=== PATIENT | female | born 1935 | race Caucasian/White ===

== ENCOUNTER 2021-09-07 03:19 | Inpatient (IN) ==
[2021-09-07] MEDS ORDERED: NITROGLYCERIN SL 0.4 MG/TAB TAB SL STA (03:33)
[2021-09-07] MEDS ORDERED: ASPIRIN 81 MG CHEW PO STA (03:33)
[2021-09-07] MEDS ORDERED: NITROGLYCERIN SL 0.4 MG/TAB TAB ONE (03:36)
[2021-09-07] MEDS ORDERED: ASPIRIN CHEW 324 MG ONE (03:36)
--- NOTE | 2021-09-07 03:42 | Emergency Department Note ---
Impression & Plan ST elevation myocardial infarction (STEMI) of inferior wall, Hypertension, Acute hyperglycemia ED Provider Note Name: CHERELLE GLORIA Age: 85 Sex: F Arrives Via: Walk-In Informant: Patient ED Provider: Gregory Amaya MD Chief Complaint: Chest pain Impression: As per impressions above Medical Decision Making: This is an 85-year-old female with history of hypertension who arrives for evaluation of left-sided chest pain for the last 6 to 7 hours. She was brought urgently to room B3 where EKG was obtained showing inferior STEMI. Heart alert was called. Patient was given sublingual nitroglycerin, aspirin 324 mg p.o. and chest x-ray, labs, Covid were sent. Chest x-ray without evidence of widened mediastinum nor significant effusion/pneumothorax. Exam with good pulses all 4 extremities which are equal. Blood pressure trended down nicely with nitro before slowly trending back up. After consultation with hospitalist patient was given 5 mg IV Lopressor with improvement in heart rate. Chest pain has significantly improved by this time, though she notes some mild dullness remains. With these findings I believe this really represents inferior ACS. Her history and symptoms are not consistent with PE nor dissection. She has a benign abdominal exam. She has had no recent history of trauma nor injury. Patient was comfortable at time of transfer to [facility] with Dr. Chandra. Prior Medical Record and Triage/Nursing Notes reviewed by Me Additional history obtained from chart Differentials:Cardiac ischemia, aortic dissection, pulmonary embolism, pneumothorax, pneumonia, pericarditis, myocarditis, esophageal rupture, GERD, cholecystitis, pancreatitis, musculoskeletal, as well as other pathologies. Vital Signs: reviewed and remarkable for hypertension Interventions: Sublingual nitroglycerin, aspirin 324 mg p.o., Lopressor 5 mg IV Labs:Reviewed and remarkable for elevated blood sugar, elevated troponin Imagin view chest x-ray reviewed by me reveals similar findings to previous chest x-ray slightly rotated without evidence of widened mediastinum nor acute congestive heart failure EKG:Per My Interpretation: Indication Chest Pain: NSR 100 bpm, qtc 441, INFERIOR STEMI. No Ectopy. Compared to EKG 08/29/21 she now has evidence of STEMI. Cardiac/Tele Monitoring: Cardiac Monitoring: An Order was placed for continuous cardiac monitoring. The monitor shows a rate of 90 with a normal sinus rhythm. Consults:Dr Evan WAYNE Hospitalist. Dr Chandra Interventional Cardiology Plan: Disposition: Transferred to [facility] Condition: Good History of Present Illness:85-year-old female arrives for evaluation of chest pain. Patient notes she was pretty active all day cleaning her house and preparing for her family to visit for [place]. She notes this evening developing left-sided chest pain. Pain is dull and crushing in nature. Comes in waves but has been quite steady for the last few hours. Symptoms initially started around 9 PM. She notes some mild burping/belching. She has had no palpitations, syncope, difficulty breathing, nausea, vomiting, back pain nor other symptoms. Patient denies any radiation down arms or legs. She denies any tearing sensation nor abdominal/leg pain. She has had no history of cardiac d isease. She denies any previous cardiac work-up. She was recently started on amlodipine for hypertension about 1 week ago. She states nothing seems to make chest pain better or worse. She has taken no medications prior to arrival. Patient drove herself to the ER. Patient denies any recent falls, trauma, injuries. Patient denies any headache or recent head injuries. Patient denies any black nor bloody stools nor other abnormal bleeding/bruising. ROS: See above HPI for pertinent positives & negatives. A total of 10 systems reviewed and were otherwise negative. Past Medical History:Hypertension Past Surgical History:Cholecystectomy, lumpectomy, ankle surgery right Family History:Patient states father with CAD Social History:Patient lives alone, never smoker, no alcohol, no drugs Home Medications:Amlodipine Allergies:No known drug allergies Vitals:Blood Pressure: 208/104, Pulse 105, RR 18, T 36.6C, O2 100% on RA Physical Exam: GENERAL: Patient is anxious appearing and in mild distress. EYES: No scleral icterus, unremarkable pupils. ENT: Mucous membranes moist, no nasal congestion. NECK: No masses appreciated, nomeningismus, trachea is midline. RESPIRATORY: No dyspnea. Clear to auscultation and equal bilaterally. No wheeze, no rhonchi. CARDIOVASCULAR: Regular rate and rhythm.No murmurs, rubs, gallops appreciated. GASTROINTESTINAL: Abdomen soft, non-tender, no peritonitis.Bowel sounds positive.No masses appreciated. BACK: No midline tenderness, no CVA tenderness EXTREMITIES: Strong equal pulses bilateral ankles/feet. Good pulse bilateral wrists. Normal motion all extremities, no cyanosis, no edema. NEUROLOGIC: Alert and oriented, no acute motor or sensory deficits, no focal weakness, cranial nerves grossly intact. SKIN: No rash, no jaundice, no diaphoresis. PSYCH: Appropriate GCS: 15 ED Course: Times/Reassessments: Extensive bedside management throughout patient's stay Critical Care: I have personally spent 40 minutes of critical care time in the direct management of this patient. 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 This was a life/limb threatening event. This 40 minutes is in excess of all separately billable procedures. Gregory Amaya MD Past Med/Surg History Surgical History History of cholecystectomy History of surgery on arm Family History Denies family history of Ovarian cancer Prostate cancer Diabetes Myocardial infarction Breast cancer Colorectal cancer Hypertension Social History Smoking Status: Never smoker Second Hand Exposure: No; Hx Alcohol Use: No Hx Substance Use: No marital status: / Current Living Situation: Alone current occupational status: retired Feels Safe at Home: Yes caffeine: No Dental Care, Regularly: No Physical Activity Frequency: 1-2 Times per Week Physical Activity Frequency Comment: walking and outside work Seatbelt Use: always Sunscreen Use: No Allergies Allergies Allergy/AdvReac Type Severity Reaction Status Date / Time No Known Allergies Allergy Verified 09/02/21 10:32 Home Meds Previous Rx's Medication Instructions Recorded amlodipine 5 mg tablet (Norvasc) 5 mg PO DAILY #30 tab 08/29/21 Results & Data (ED) Vital Signs Vital Signs - 24 hr 09/07/21 03:28 09/07/21 03:30 09/07/21 03:42 Temperature 36.6 C Temperature Source Oral Pulse Rate 105 H Pulse Rate [Right Finger] 94 H Respiratory Rate 18 16 Respiratory Effort / Characteristics Non-Labored Spontaneous Non-Labored Spontaneous Respiratory Depth Normal Normal Blood Pressure 208/104 H Blood Pressure [Right Arm] 152/91 H Blood Pressure Mean 138 Blood Pressure Mean [Right Arm] 111 Blood Pressure Position Lying Blood Pressure Position [Right Arm] Sitting Pulse Oximetry 100 97 Oxygen Delivery Method Room Air Room Air Room Air Sepsis Recent Fever Within 48 Hours No Sepsis New/Unexplained Change in Mental Status N/A Sepsis Action Taken by Nursing No Action Required 09/07/21 03:48 09/07/21 04:10 Temperature Temperature Source Pulse Rate 100 H Pulse Rate [Right Finger] 93 H Respiratory Rate 16 16 Respiratory Effort / Characteristics Respiratory Depth Blood Pressure 172/76 H Blood Pressure [Right Arm] 175/89 H Blood Pressure Mean Blood Pressure Mean [Right Arm] 117 Blood Pressure Position Blood Pressure Position [Right Arm] Sitting Pulse Oximetry 97 96 Oxygen Delivery Method Room Air Room Air Sepsis Recent Fever Within 48 Hours Sepsis New/Unexplained Change in Mental Status Sepsis Action Taken by Nursing Laboratory Data Result diagrams: 09/07/21 03:34 09/07/21 03:34 Lab Results 09/07/21 09/07/21 09/07/21 Range/Units 03:34 03:34 03:34 WBC 9.14 (4.8-10.8) K/uL RBC 4.38 (4.2-5.4) M/uL Hgb 13.9 (12.0-16.0) g/dL POC Hgb (12.0-16.0) g/dl Hct 42.5 (37-47) % POC Hct (37-47) % MCV 97.0 (80-100) fL MCH 31.7 (25-34) pg MCHC 32.7 (32-36) g/dL RDW Std Deviation 46.5 H (36.4-46.3) fL RDW Coeff of Tavia 13.1 (11.5-14.5) % Plt Count 282 (130-400) K/uL MPV 9.9 (7.4-10.4) fL Immature Gran % (Auto) 0.1 % Neut % (Auto) 68.8 % Lymph % (Auto) 23.3 % Emanuel % (Auto) 6.9 % Eos % (Auto) 0.4 % Baso % (Auto) 0.5 % Neut # (Auto) 6.28 (1.4-6.5) K/uL Lymph # (Auto) 2.13 (1.2-3.4) K/uL Emanuel # (Auto) 0.63 H (0.11-0.59) K/uL Eos # (Auto) 0.04 (0-0.5) K/uL Baso # (Auto) 0.05 (0-0.2) K/uL Immature Gran # (Auto) 0.01 (0.00-0.02) K/uL PT 10.4 (9.0-12.0) Seconds INR 1.0 (0.9-1.1) APTT 27.4 (21.0-31.0) Seconds PTT Ratio 1.0 POC Sodium (135-144) mmol/L Sodium 135 L (136-145) mmol/L POC Potassium (3.3-5.0) mmol/L Potassium 4.0 (3.5-5.1) mmol/L POC Chloride (101-112) mmol/L Chloride 101 (98-107) mmol/L Carbon Dioxide 27 (21-32) mmol/L POC Total CO2 (24-31) mmol/L Anion Gap 7.0 (3-11) POC Anion Gap (16-25) mmol/L POC BUN (7-18) mg/dl BUN 22 H (7-18) mg/dl Creatinine 1.22 H (0.6-1.2) mg/dl POC Creatinine (0.6-1.3) mg/dl Est Cr Clr Drug Dosing 36.8 ml/min Est GFR ( Amer) 47.4 ml/min Est GFR (Non-Af Amer) 40.9 ml/min BUN/Creatinine Ratio 18.4 (10-20) Glucose 181 H (70-99) mg/dl POC Glucose (other) (70-99) mg/dl Calcium 9.9 (8.5-10.1) mg/dl POC Ioniz Calcium Majo (1.12-1.32) mmol/l Troponin I 2.140 H* (0-0.045) ng/ml SARS-CoV-2, RNA, NAAT (NEGATIVE) 09/07/21 09/07/21 Range/Units 03:48 04:07 WBC (4.8-10.8) K/uL RBC (4.2-5.4) M/uL Hgb (12.0-16.0) g/dL POC Hgb 14.3 (12.0-16.0) g/dl Hct (37-47) % POC Hct 42 (37-47) % MCV (80-100) fL MCH (25-34) pg MCHC (32-36) g/dL RDW Std Deviation (36.4-46.3) fL RDW Coeff of Tavia (11.5-14.5) % Plt Count (130-400) K/uL MPV (7.4-10.4) fL Immature Gran % (Auto) % Neut % (Auto) % Lymph % (Auto) % Emanuel % (Auto) % Eos % (Auto) % Baso % (Auto) % Neut # (Auto) (1.4-6.5) K/uL Lymph # (Auto) (1.2-3.4) K/uL Emanuel # (Auto) (0.11-0.59) K/uL Eos # (Auto) (0-0.5) K/uL Baso # (Auto) (0-0.2) K/uL Immature Gran # (Auto) (0.00-0.02) K/uL PT (9.0-12.0) Seconds INR (0.9-1.1) APTT (21.0-31.0) Seconds PTT Ratio POC Sodium 137 (135-144) mmol/L Sodium (136-145) mmol/L POC Potassium 4.0 (3.3-5.0) mmol/L Potassium (3.5-5.1) mmol/L POC Chloride 99 L (101-112) mmol/L Chloride (98-107) mmol/L Carbon Dioxide (21-32) mmol/L POC Total CO2 26 (24-31) mmol/L Anion Gap (3-11) POC Anion Gap 17.0 (16-25) mmol/L POC BUN 25 H (7-18) mg/dl BUN (7-18) mg/dl Creatinine (0.6-1.2) mg/dl POC Creatinine 1.0 (0.6-1.3) mg/dl Est Cr Clr Drug Dosing ml/min Est GFR ( Amer) ml/min Est GFR (Non-Af Amer) ml/min BUN/Creatinine Ratio (10-20) Glucose (70-99) mg/dl POC Glucose (other) 186 H (70-99) mg/dl Calcium (8.5-10.1) mg/dl POC Ioniz Calcium Majo 1.21 (1.12-1.32) mmol/l Troponin I (0-0.045) ng/ml SARS-CoV-2, RNA, NAAT NEGATIVE (NEGATIVE) Administered Medications Discontinued Medications Aspirin (Aspirin 81 Mg Chew) 324 mg PO NOW STA Stop: 09/07/21 03:34 Last Admin: 09/07/21 03:42 Dose: 324 mg Documented by: [id number] Aspirin (Aspirin Chew 324 Mg) Confirm Administered Dose 324 mg .ROUTE .STK-MED ONE Stop: 09/07/21 03:37 Last Admin: 09/07/21 03:42 Dose: Not Given Documented by: [id number] Metoprolol Tartrate (Metoprolol Tartrate 1 Mg/Ml Vial) 5 mg IV NOW STA Stop: 09/07/21 03:57 Last Admin: 09/07/21 03:58 Dose: 5 mg Documented by: [id number] Metoprolol Tartrate (Metoprolol Tartrate 1 Mg/Ml Vial) Confirm Administered Dose 5 mg IV .STK-MED ONE Stop: 09/07/21 03:57 Last Admin: 09/07/21 03:58 Dose: Not Given Documented by: [id number] Nitroglycerin (Nitroglycerin Sl 0.4 Mg/Tab Tab) 0.4 mg SL NOW STA Stop: 09/07/21 03:34 Last Admin: 09/07/21 03:42 Dose: 0.4 mg Documented by: [id number] Nitroglycerin (Nitroglycerin Sl 0.4 Mg/Tab Tab) Confirm Administered Dose 0.4 mg .ROUTE .STK-MED ONE Stop: 09/07/21 03:37 Last Admin: 09/07/21 03:42 Dose: Not Given Documented by: [id number] Discharge Plan Visit Data Chief Complaint: Chest Pain Stated Complaint: CHEST PAINS AND KEEP BURPING ED Provider: Gregory Amaya Discharge Problem: ST elevation myocardial infarction (STEMI) of inferior wall, Hypertension, Acute hyperglycemia Discharge Instructions Interventions: ED Discharge Assessment Last Done: 09/07/21 04:10 Forms Stand Alone Forms: [employer] Prescriptions Prescriptions: No Action amlodipine [Norvasc] 5 mg tablet 5 mg PO DAILY Qty: 30 RF: 0 Referrals Referrals: Tiffanie King PA-C [Primary Care Provider] - Discharge Problem: Hypertension Qualifiers: Hypertension type: primary hypertension Qualified Code(s): I10 - Essential (primary) hypertension
[2021-09-07 03:44] LABS: Basophils # (auto) 0.05 K/uL (0-0.2); Basophils % (auto) 0.5 %; Eosinophils # (auto) 0.04 K/uL (0-0.5); Eosinophils % (auto) 0.4 %; Hematocrit (blood only) 42.5 % (37-47); Hemoglobin 13.9 g/dL (12.0-16.0); Immature Granulocytes # (auto) 0.01 K/uL (0.00-0.02); Immature Granulocytes % (auto) 0.1 %; Lymphocytes # (auto) 2.13 K/uL (1.2-3.4); Lymphocytes % (auto) 23.3 %; Mean Corpuscular Hemoglobin 31.7 pg (25-34); Mean Corpuscular Hgb Conc 32.7 g/dL (32-36); Mean Platelet Volume 9.9 fL (7.4-10.4); Monocytes # (auto) 0.63 K/uL (0.11-0.59); Monocytes % (auto) 6.9 %; Neutrophils # (auto) 6.28 K/uL (1.4-6.5); Neutrophils % (auto) 68.8 %; Platelet Count 282 K/uL (130-400); RDW Coefficient of Variation 13.1 % (11.5-14.5); RDW Standard Deviation 46.5 fL (36.4-46.3); Red Blood Count 4.38 M/uL (4.2-5.4); White Blood Count 9.14 K/uL (4.8-10.8)
[2021-09-07] MEDS ORDERED: METOPROLOL TARTRATE 1 MG/ML VIAL IV ONE (03:56)
[2021-09-07] MEDS ORDERED: METOPROLOL TARTRATE 1 MG/ML VIAL IV STA (03:56)
[2021-09-07] MEDS ORDERED: niCARdipine HCL INJ 2.5 MG/ML 10 ML AMP ONE (03:57)
[2021-09-07] MEDS ORDERED: fentaNYL citrate 100 MCG/2 ML VIAL ONE (03:57)
[2021-09-07] MEDS ORDERED: HEPARIN (PORCINE) 1000 UNIT/ML 10 ML (CATH LAB USE ONLY) ONE (03:57)
[2021-09-07] MEDS ORDERED: MIDAZOLAM HCL 1 MG/ML 2ML VIAL ONE (03:57)
[2021-09-07] MEDS ORDERED: NITROGLYCERIN/D5W 100MCG/ML 20ML SYR ONE (03:58)
[2021-09-07 04:03] LABS: BUN Creatinine Ratio 18.4 (10-20); Calcium 9.9 mg/dl (8.5-10.1); Creatinine Clr Calc Pharmacy 36.8 ml/min; Est GFR (African American) 47.4 ml/min; Est GFR (Non-African American) 40.9 ml/min
[2021-09-07 04:04] LABS: iSTAT Hemoglobin 14.3 g/dl (12.0-16.0); iSTAT Ionized Calcium 1.21 mmol/l (1.12-1.32)
[2021-09-07 04:07] LABS: Partial Thromboplastin Time 27.4 Seconds (21.0-31.0); Prothrombin Time 10.4 Seconds (9.0-12.0)
--- NOTE | 2021-09-07 04:12 | Pre Anesthesia Assessment ---
Date of Service September 07, 2021 Pre Sedation Assessment Vital Signs Temp Pulse Pulse Resp BP BP Pulse Ox 09/07/21 03:48 93 H 16 175/89 H 97 09/07/21 03:42 94 H 16 152/91 H 97 09/07/21 03:28 97.9 F 105 H 18 208/104 H 100 Cardiovascular RRR, no murmur, no edema Respiratory normal respiratory effort, lungs clear to auscultation Pre-Sedation Airway Assessment Smoking Status: Never smoker Hx Sleep Apnea: No Hx Difficult Intubation: No Short, Thick Neck: No Thyromental Distance: > or= 3.5 Finger Breadths Oral Cavity: + WNL Mallampati Class: III ASA: ASA3 Procedure Planning Contraindications for Sedation: none Current Medications Reviewed: Yes Notes The planned sedation has been discussed with the patient. Informed Consent was obtained. I have identified the patient, determined the appropriateness of sedation and have assessed the patient immediately prior to the procedure. All medicine(s) and interventions are by my order.
--- NOTE | 2021-09-07 04:15 | Cardiology Consultation ---
Date of Consultation September 07, 2021 Assessment & Plan (1) ST elevation myocardial infarction (STEMI) of inferior wall: Presentation consistent with inferior STEMI and recommend proceeding with emergent cardiac catheterization and likely primary PCI. No apparent contraindications to procedure. Discussed risks, benefits, alternatives of procedure with patient and they are willing to proceed. Further recommendations pending findings of coronary angiography. History of Present Illness History of Present Illness 85-year-old woman here with acute chest pain and ECG concerning for acute [place]. Patient seen emergently in the ED after heart alert activated on arrival. No prior cardiac history. Cardiac risk factors include hypertension, recently started on only medicine amlodipine. No other medical issues. Chest pain began around 9 PM, approximately 6 hours prior to arrival after she had finished cleaning her whole home. Describes substernal pain with associated nausea. Denies similar symptoms in the past. Chest pain down to 3 out of 10 after nitro, aspirin. In ED hypertensive to 200s. EKG showed inferior ST elevations. Allergies Allergy/AdvReac Type Severity Reaction Status Date / Time No Known Allergies Allergy Verified 09/02/21 10:32 Home Medications Medication Instructions Recorded Confirmed Type amlodipine 5 mg tablet (Norvasc) 5 mg PO DAILY #30 tab 08/29/21 09/02/21 Rx Patient History Surgical History History of cholecystectomy History of surgery on arm Family History Denies family history of Ovarian cancer Prostate cancer Diabetes Myocardial infarction Breast cancer Colorectal cancer Hypertension Social History Smoking Status: Never smoker Second Hand Exposure: No; Hx Alcohol Use: No Hx Substance Use: No marital status: / Current Living Situation: Alone current occupational status: retired Feels Safe at Home: Yes caffeine: No Dental Care, Regularly: No Physical Activity Frequency: 1-2 Times per Week Physical Activity Frequency Comment: walking and outside work Seatbelt Use: always Sunscreen Use: No Review of Systems Review of Systems: Not completed in the setting of emergent situation Physical Exam Physical Exam: General: Uncomfortable HEENT: Sclerae anicteric, Mask in place Lungs: Clear to auscultation bilaterally Cardiac: Regular rate and rhythm, no murmurs. Vascular: 2+ radial, DP pulses. Abdomen: Soft, nontender Extremities: Well perfused, no peripheral edema Neuro: Nonfocal Psych: Alert orient x3, normal affect and mood Results & Data ([facility]) Vital Signs (Past 12 Hours) Vital Signs Temp Pulse Pulse Resp BP BP Pulse Ox 09/07/21 03:48 93 H 16 175/89 H 97 09/07/21 03:42 94 H 16 152/91 H 97 09/07/21 03:28 97.9 F 105 H 18 208/104 H 100 PG Care Time/CCT Total # of Minutes Spent Total Time Spent with Patient: Total time spent is greater than 50% in coordination of care (as documented) at patient's floor/unit and/or counseling patient: Coding Level of Care Code 05810 Initial Inpt Care Lvl [address] elevation myocardial infarction (STEMI) of inferior wall I21.19
[2021-09-07 04:29] LABS: Troponin I 2.14 ng/ml (0-0.045)
[2021-09-07] MEDS ORDERED: ATROPINE SULFATE 0.1 MG/ML 10ML SYR IV ONE (04:33)
[2021-09-07] MEDS ORDERED: EPTIFIBATIDE 2 MG/ML 10 ML VIAL (CATH LAB USE ONLY) IV ONE (04:35)
--- NOTE | 2021-09-07 05:12 | Post Anesthesia Assessment ---
Date of Service September 07, 2021 Post Sedation Assessment Vital Signs Temp Pulse Pulse Resp BP BP Pulse Ox 09/07/21 04:10 100 H 16 172/76 H 96 09/07/21 03:48 93 H 16 175/89 H 97 09/07/21 03:42 94 H 16 152/91 H 97 09/07/21 03:28 97.9 F 105 H 18 208/104 H 100 Recovery Score Activity: Moves 4 extremities Respiration: Deep Breath/Cough Circulation: +/-20% PreAnes Value Consciousness: Fully Awake Oxygen Saturation: O2 needed for >90% Discharge Sedation Level of Care: Fast Track Phase II Post Sedation Plan On clinical assessment, the patient appears to have tolerated the sedation without complications. Patient is recovering as anticipated. Patient will continue to be monitored by nursing and may be discharged when sedation discharge criteria are met per below protocol. Upon Completions of procedure up to 15 minutes continue every 5 minute vital signs and the P.A.R. score; then discharge to a Phase I or Fast Track to Phase II per the following guidelines: * Discharge Patient to appropriate Phase II area if PAR is 8 or greater or return to pre- procedure baseline. The post - procedure orders will be as directed. * If PAR score is less than 8 or not return to pre-procedure baseline then patient will follow Phase I monitoring till PAR is reached for Phase II. The Phase I may be done in procedure room or may call to secure a Phase I area. * If naloxone or flumazenil are used for reversal, hold in Phase I for continued monitoring from when last reversal dose was given for a minimum of 60 minutes or longer pending the nurse and/or physician discretion of patient condition before discharge to Phase II. Please call the Sedation Physician to re-evaluate and complete post-note for discharge to Phase II area. Do NOT discharge from procedure sedation or Phase 1 until post- sedation evaluation note is complete by procedure /sedation MD Sedation Discharge Instructions to be given to the patient at discharge to home.
[2021-09-07] MEDS ORDERED: CLOPIDOGREL BISULFATE 300 MG TAB ONE (05:15)
[2021-09-07] MEDS ORDERED: ONDANSETRON INJ 2 MG/ML 2 ML VIAL IV PRN (05:16)
[2021-09-07] MEDS ORDERED: ICU PROTOCOL FOR HYPERGLYCEMIA PRN (05:16)
[2021-09-07] MEDS ORDERED: ACETAMINOPHEN 325 MG TAB PO PRN (05:16)
[2021-09-07] MEDS ORDERED: SODIUM CHLORIDE 0.9% 1000ML 1,000 ML IV SCH (05:30)
--- NOTE | 2021-09-07 05:39 | History & Physical Report ---
Date of Service September 07, 2021 Assessment & Plan (1) ST elevation myocardial infarction (STEMI) of inferior wall: Plan: Inferior wall STEMI/hypertension- Heart alert protocol Emergent cardiac catheterization by dementia cardiology Dr. Chandra Medications post procedure per Dr. Chandra Cardiac catheterization showed distal RCA occlusion with upstream disease, treated with 3 stents Additional LAD disease to be intervened with in 1 to 2 days. (2) Hypertension: Plan: See above (3) Acute hyperglycemia: Plan: Glucose [address] Accu-Cheks before meals and at bedtime with NovoLog coverage per scale Check a hemoglobin A1c History of Present Illness Chief Complaint: The patient presents to the emergency department with complaint of acute onset of left-sided chest discomfort, of duration 6 to 7 hours prior to arrival Primary Care Provider: Tiffanie King PA-C The patient is an 85-year-old female with a past medical history including hypertension, recently started on amlodipine 5 mg daily in the outpatient setting, who was in her usual state of health until this evening where she developed acute onset of left-sided chest discomfort. Since the discomfort persisted 6 to 7 hours, she decided come to ED for assessment. In the emergency department, patient had an emergent EKG which showed ST elevation CA inferiorly, and heart alert was called. Patient did receive Lopressor 5 mg IV while in the ED, and aspirin 324 mg. She was taken emergently to cardiac catheter lab by Dr. Lenin Chandra, and will be admitted to the hospital post procedure for continued management Allergies Allergy/AdvReac Type Severity Reaction Status Date / Time No Known Allergies Allergy Verified 09/02/21 10:32 Home Medications Medication Instructions Recorded Confirmed Type amlodipine 5 mg tablet (Norvasc) 5 mg PO DAILY #30 tab 08/29/21 09/02/21 Rx Past Med/Surg History Surgical History History of cholecystectomy History of surgery on arm Family History Denies family history of Ovarian cancer Prostate cancer Diabetes Myocardial infarction Breast cancer Colorectal cancer Hypertension Social History Smoking Status: Never smoker Second Hand Exposure: No; Hx Alcohol Use: No Hx Substance Use: No marital status: / Current Living Situation: Alone current occupational status: retired Feels Safe at Home: Yes caffeine: No Dental Care, Regularly: No Physical Activity Frequency: 1-2 Times per Week Physical Activity Frequency Comment: walking and outside work Seatbelt Use: always Sunscreen Use: No Review of Systems Review of Systems: The patient denies palpitations, cough, lower extremity swelling, sore throat, fevers, chills, sweats, weight change, fatigue, nausea, vomiting, diarrhea , constipation, abdominal pain, pelvic pain, blood in urine or stool, dysuria, urinary frequency or urgency, lightheadedness, dizziness, headache, memory loss, loss of consciousness, rash, abnormal bruising or bleeding, imbalance, focal or generalized weakness, numbness or tingling in arms or legs, generalized arthralgias or myalgias, back or neck pain, or night sweats. The review of systems is otherwise negative other than for that already noted above, and at least 10 systems have been reviewed. Physical Exam Physical Exam: The patient is awake, alert and oriented 3, well developed and well nourished, normocephalic and atraumatic, lying in bed and in mildacute distress. HEENT--PERRL, EOMI, mucous membranes and oropharynx normal. Neck--supple. No JVD. No bruits. Thyroid normal, trachea midline, no adenopathy. Heart--normal S1 and S2. No murmurs, rubs or gallops. Lungs--clear bilaterally, no respiratory distress, no accessory muscle use. Abdomen--normal bowel sounds and soft. Nontender. Nondistended. Extremities--no cyanosis or clubbing. No edema. Dermatologic--normal skin turgor, normal color, no abnormal lymph nodes, no rash. Neurologic--cranial nerves II through XII grossly intact. Rheumatologic--limited exam Psychiatric--normal affect. Results & Data Results & Data ([facility]) Vital Signs (Past 12 Hours) Vital Signs Temp Pulse Pulse Resp BP BP Pulse Ox 09/07/21 04:10 100 H 16 172/76 H 96 09/07/21 03:48 93 H 16 175/89 H 97 09/07/21 03:42 94 H 16 152/91 H 97 09/07/21 03:28 36.6 C 105 H 18 208/104 H 100 Laboratory Results Laboratory Results WBC 9.14 K/uL (4.8-10.8) 09/07/21 03:34 RBC 4.38 M/uL (4.2-5.4) 09/07/21 03:34 Hgb 13.9 g/dL (12.0-16.0) 09/07/21 03:34 POC Hgb 14.3 g/dl (12.0-16.0) 09/07/21 03:48 Hct 42.5 % (37-47) 09/07/21 03:34 POC Hct 42 % (37-47) 09/07/21 03:48 MCV 97.0 fL (80-100) 09/07/21 03:34 MCH 31.7 pg (25-34) 09/07/21 03:34 MCHC 32.7 g/dL (32-36) 09/07/21 03:34 RDW Std Deviation 46.5 fL (36.4-46.3) H 09/07/21 03:34 RDW Coeff of Tavia 13.1 % (11.5-14.5) 09/07/21 03:34 Plt Count 282 K/uL (130-400) 09/07/21 03:34 MPV 9.9 fL (7.4-10.4) 09/07/21 03:34 Immature Gran % (Auto) 0.1 % 09/07/21 03:34 Neut % (Auto) 68.8 % 09/07/21 03:34 Lymph % (Auto) 23.3 % 09/07/21 03:34 Arthur % (Auto) 6.9 % 09/07/21 03:34 Eos % (Auto) 0.4 % 09/07/21 03:34 Baso % (Auto) 0.5 % 09/07/21 03:34 Neut # (Auto) 6.28 K/uL (1.4-6.5) 09/07/21 03:34 Lymph # (Auto) 2.13 K/uL (1.2-3.4) 09/07/21 03:34 Arthur # (Auto) 0.63 K/uL (0.11-0.59) H 09/07/21 03:34 Eos # (Auto) 0.04 K/uL (0-0.5) 09/07/21 03:34 Baso # (Auto) 0.05 K/uL (0-0.2) 09/07/21 03:34 Immature Gran # (Auto) 0.01 K/uL (0.00-0.02) 09/07/21 03:34 PT 10.4 Seconds (9.0-12.0) 09/07/21 03:34 INR 1.0 (0.9-1.1) 09/07/21 03:34 APTT 27.4 Seconds (21.0-31.0) 09/07/21 03:34 PTT Ratio 1.0 09/07/21 03:34 Activ Coag Time Kaolin 255 SECONDS (94-140) H 09/07/21 04:42 POC Sodium 137 mmol/L (135-144) 09/07/21 03:48 Sodium 135 mmol/L (136-145) L 09/07/21 03:34 POC Potassium 4.0 mmol/L (3.3-5.0) 09/07/21 03:48 Potassium 4.0 mmol/L (3.5-5.1) 09/07/21 03:34 POC Chloride 99 mmol/L (101-112) L 09/07/21 03:48 Chloride 101 mmol/L (98-107) 09/07/21 03:34 Carbon Dioxide 27 mmol/L (21-32) 09/07/21 03:34 POC Total CO2 26 mmol/L (24-31) 09/07/21 03:48 Anion Gap 7.0 (3-11) 09/07/21 03:34 POC Anion Gap 17.0 mmol/L (16-25) 09/07/21 03:48 POC BUN 25 mg/dl (7-18) H 09/07/21 03:48 BUN 22 mg/dl (7-18) H 09/07/21 03:34 Creatinine 1.22 mg/dl (0.6-1.2) H 09/07/21 03:34 POC Creatinine 1.0 mg/dl (0.6-1.3) 09/07/21 03:48 Est Cr Clr Drug Dosing 36.8 ml/min 09/07/21 03:34 Est GFR ( Amer) 47.4 ml/min 09/07/21 03:34 Est GFR (Non-Af Amer) 40.9 ml/min 09/07/21 03:34 BUN/Creatinine Ratio 18.4 (10-20) 09/07/21 03:34 Glucose 181 mg/dl (70-99) H 09/07/21 03:34 POC Glucose (other) 186 mg/dl (70-99) H 09/07/21 03:48 Calcium 9.9 mg/dl (8.5-10.1) 09/07/21 03:34 POC Ioniz Calcium Majo 1.21 mmol/l (1.12-1.32) 09/07/21 03:48 Troponin I 2.140 ng/ml (0-0.045) H* 09/07/21 03:34 SARS-CoV-2, RNA, NAAT NEGATIVE (NEGATIVE) 09/07/21 04:07 Blood Type A Positive 09/07/21 03:34 Antibody Screen NEGATIVE 09/07/21 03:34 Code Status & VTE Plan Code Status Full code VTE Prophylaxis Plan VTE Prophylaxis will be ordered: Yes PG Care Time/CCT Total # of Minutes Spent Total Time Spent with Patient: Total time spent is greater than 50% in coordination of care (as documented) at patient's floor/unit and/or counseling patient: Coding Level of Care Code 98114 Initial Inpt Care Lvl [address] elevation myocardial infarction (STEMI) of inferior wall I21.19 Hypertension I10 Hypertension type: primary hypertension Acute hyperglycemia R73.9 (1) Hypertension Hypertension type: primary hypertension Qualified Code(s): I10 - Essential (primary) hypertension
--- NOTE | 2021-09-07 05:43 | Cardiac Catheterization ---
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 Cardiac Status Clinical evaluation leading to the procedure CAD Presenation: STEMI Anginal Classification: CCS IV Heart Failure: No Cardiogenic Shock within 24 Hours: No Cardiac Arrest within 24 Hours: No Imaging Studies Past 6 Months: No Stress Studies Past 6 Months: No Diagnostic Physicians Name: Lenin Chandra MD Status: Emergency Closure Device Percutaneous Entry Location: Radial Closure Device: Radial Band Recommendations: PCI without planned CABG PCI Indication: Immediate PCI for STEMI First Noted: First EKG Lesion Segment Name: Distal RCA Culprit Artery: Yes Stenosis Prior to Rx (%): 100 Chronic Total Occlusion: No IVUS: No FFR: No Pre-Procedure YOSELYN Flow: 0 Previously Treated Lesion: No Lesion Complexity: Non-High/Non-C Lesion Length (mm): 18 Thrombus Present: Yes Bifurcation Lesion: No Guidewire Across Lesion: Stenosis Post-Procedure (%): 0 Post-Procedure YOSELYN Flow: 3 Devices(s) Deployed: Yes Yes Intraprocedure Events Significant Disection: No Perforation: No Cardiac Cath Procedure Full Procedure Date September 07, 2021 Pre-Procedure Diagnosis Pre-Procedure Diagnosis: STEMI AUC Score AUC Score: 9 Post-Procedure Diagnosis Post-Procedure Diagnosis: Severe CAD, Successful PCI and Normal Intracardiac Pressures Procedure(s) Performed Procedure(s) Performed: Coronary Angiography, Left Heart Cath and Drug Eluting Stent Shake Feeder Lenin Chandra MD Bisque Brusher(s) Deibler Estimated Blood Loss Estimated Blood Loss: 15 Medication(s) Medication(s): Clopidogrel, Fentanyl, Heparin, Integrilin, Lidocaine 1%, Nicardipine, Nitroglycerin and Versed Summary of Findings Indication: STEMI/Heart Alert Access: 6 Fr right radial artery Catheters: [place], JR4 guide, pigtail Findings: LM -normal caliber, no significant disease LAD -medium caliber, calcified, diffuse proximal to mid disease up to 90%, latemid vessel after 2nd diagonal diffuse moderate disease up to 60%, distal vessel without significant disease extending to apex. Small D2 without disease. Circumflex -medium caliber, 20 to 30% proximal, 40% mid segment disease extending into large OM 2. Remainder of AV groove circumflex small without significant disease and provides [id number] collaterals to right PLB's RCA -dominant, medium caliber 60% focal proximal to mid disease, mid segment heavily calcified with diffuse 70% disease, acute on chronic 100% distal occlusion just before takeoff of PDA. PDA after flow reestablished medium caliber without significant disease. LVEDP -14 -- PCI -- Antithrombotic therapy: Heparin, clopidogrel, IC Integrilin Procedure: RCA cannulated with JR4 guide Airplane Coverer 50 passed across lesion into distal right PLB Telescope support catheter placed in the proximal RCA Distal RCA lesion predilated with 2.0 and 2.5 compliant balloons. Mid RCA also dilated with 2.0 and 2.5 balloons. IC Integrilin administered for thrombus burden, sluggish distal flow Dilated distal RCA lesion stented with 2.75 x 22 mm Naseem drug-eluting stent Dilated mid RCA lesion stented with 3.0 x 22 mm Naseem drug-eluting stent Stents post-dilated with 3.25 noncompliant balloon 3rd drug-eluting stent placed to proximal RCA (3.0 x 12 mm [place]) Stent postdilated with 3.25 NC IC vasodilators administered for spasm Post procedure YOSELYN 3 flow, stents well expanded with minimal residual stenosis and no apparent cardiac complications. Arterial Closure: TR band Summary: 1. Inferior STEMI 2. Acute on chronic 100% distal RCA occlusion with partial [id number] collaterals. 60% proximal RCA, 70% diffuse mid RCA. 3. Severe non-culprit vessel coronary artery disease -Diffuse proximal to mid 90% LAD. Latemid LAD diffuse moderate disease. 40% mid circumflex into OM 2 4. Normal intracardiac filling pressure 5. Successful PCI of RCA with 3 nonoverlapping drug-eluting stents (proximal 3.0 x 12, mid 3.0 x 22, distal 2.75 x 22 Florence; postdilated with 3.25 NC). 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 Trend troponins until peak, Check Echo Uptitrate beta-sharon/ARIADNA as BP allows High-dose statin Consult cardiac Rehab Plan for staged PCI of proximal to mid LAD during this hospitalization pending stable renal function. Hemodynamics Rest Ao:: 157/67/112 Final Ao: 116/51/74 LV: 109/14 Recommendations Recommendations: PCI without planned CABG Specimens Specimens: None Radiation Exposure (mGy) 3289 Contrast (mls) 120 Fluids (cc crystalloids) Fluids (cc crystalloids): 480 Drains Drains: None Anesthesia Moderate 1378-3850 Procedural Complication(s) None Disposition ICU I attest to the content of the Intraoperative Record and any orders documented therein. Any exceptions are noted below. [facility] Card Cath Procedure Codes Cardiac Catheterization Procedure 1: Cardiovascular Cath Procedures: 99660 Coronaries and LHC (+/-LV) Moderate Sedation Procedure 1: Sedation/Anesthesia: 94329 Mod Sedation by the same physician;Init15 Min Child Age 5 & Up Procedure 2: Sedation/Anesthesia: 66572 Mod Sedation by the same physician; Ea [id number] Minutes Stenting Procedure 1: Cardiovascular Stent Procedures: 04043 Perc transluminal revascularization of acute sub/total occl, aMI PG Care Time/CCT Total # of Minutes Spent Total Time Spent with Patient: Total time spent is greater than 50% in coordination of care (as documented) at patient's floor/unit and/or counseling patient:
[2021-09-07] MEDS ORDERED: CARBOHYDRATES FOR HYPOGLYCEMIA PO PRN (05:57)
[2021-09-07] MEDS ORDERED: GLUCOSE 40% GEL 15 GM TUBE PO PRN (05:57)
[2021-09-07] MEDS ORDERED: GLUCOSE 10 TABS/TUBE PO PRN (05:57)
[2021-09-07] MEDS ORDERED: GLUCAGON FOR INJ 1 MG VIAL SQ PRN (05:57)
[2021-09-07] MEDS ORDERED: DEXTROSE 50% 50 ML SYRINGE IV PRN (05:57)
--- NOTE | 2021-09-07 07:07 | XRay Report ---
XR chest 1V portable CLINICAL HISTORY: Chest Pain. COMPARISON STUDY: 08/29/2021 TECHNIQUE: 1 view of the chest FINDINGS: Single frontal view of the chest demonstrates the heart size to again be mildly enlarged. There is ag ain evidence for mild central vascular congestion with no evidence for peripheral interstitial edema. There is no evidence for pleural effusion. No acute alveolar opacities are identified. There is no a cute osseous pathology. IMPRESSION: Cardiomegaly with mild central vascular congestion. No diffuse interstitial edema is seen . ACT 112: Negative or not required by law. Electronically signed by: Nickolas Nicolas M.D. 09/07/2021 7:05 AM
--- NOTE | 2021-09-07 07:49 | Critical Care Consultation ---
Date of Consultation September 07, 2021 Assessment & Plan (1) ST elevation myocardial infarction (STEMI) of inferior wall: (2) Hypertension: (3) Obesity (BMI 30.0-34.9): Initial EKG in the ER showed ST elevation in 2 3 aVF EKG post cardiac cath showed resolving ST elevations. --STEMI S/p cardiac cath, 3 stents placed in the RCA Continue with dual antiplatelet therapy Continue with beta-sharon and ARIADNA inhibitor Continue with statin --Hypertension Continue with beta-sharon and lisinopril We will increase the dose if need be --Obesity Try to lose weight with diet and exercise Plan: Patient is supposed to have another cardiac catheterization tomorrow Continue with IV fluids for total of 750 mm Incentive spirometry Please note the above document was generated using voice recognition software. It may contain grammatical, syntax or spelling errors.Any formal questions or concerns about the content, text or information contained within the body of t his dictation should be directly addressed to the provider for clarification. History of Present Illness Attending Physician: Chaka Lindsey MD History of Present Illness 85-year-old female past medical history of hypertension presented to the hospital with complaints of chest pain Patient was found to have ST elevation in 2 3 and aVF. STEMI was called and patient was taken to the cardiac Label Coder Patient is seen in the ICU post cardiac catheterization and stenting At the time of examination patient denied any chest pain. No shortness of breath. No nausea vomiting She did have breakfast Denied any headache. No blurry vision. Has been eating well. She is overall feeling better compared to when she presented to the ER Social history: Lifetime non-smoker. No illicit drug use. Works in [employer] Allergies Allergy/AdvReac Type Severity Reaction Status Date / Time No Known Allergies Allergy Verified 09/02/21 10:32 Home Medications Medication Instructions Recorded Confirmed Type amlodipine 5 mg tablet (Norvasc) 5 mg PO DAILY #30 tab 08/29/21 09/02/21 Rx Patient History Surgical History History of cholecystectomy History of surgery on arm Family History Denies family history of Ovarian cancer Prostate cancer Diabetes Myocardial infarction Breast cancer Colorectal cancer Hypertension Social History Smoking Status: Never smoker Second Hand Exposure: No; Do You Dip or Chew Tobacco: No; Hx Alcohol Use: No Hx Substance Use: No Preferred Language: French Communication Ability: Effective 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 Beliefs That Will Affect Care: None marital status: / Current Living Situation: Alone current occupational status: retired Feels Safe at Home: Yes Safety Concerns: Feels Safe At This Time caffeine: No Dental Care, Regularly: No Physical Activity Frequency: 1-2 Times per Week Physical Activity Frequency Comment: walking and outside work Seatbelt Use: always Sunscreen Use: No Assistive Devices: Denture - Upper and Glasses Review of Systems Review of Systems: All systems reviewed & are unremarkable except as noted in HPI & below Physical Exam Physical Exam: Constitutional: No acute distress HEENT: EOMI, PERRLA Respiratory system: Good air entry bilaterally, no wheeze, no rhonchi, mild crackles bilateral lower lobes CVS: S1-S2 positive, no murmurs or gallops Abdomen: Soft, nontender, nondistended, positive bowel sounds x4 Extremities: +2 pulses bilaterally radialis/ dorsalis pedis, no cyanosis, no edema Neuro: Awake alert oriented x3 Psych: Normal mood and affect G/U: No Damon Skin: no rashes, warm and dry Lymphatic: no cervical or axillary lymphadenopathy Results & Data Results & Data ([facility]) Vital Signs (Past 12 Hours) Vital Signs Temp Pulse Pulse Pulse Resp BP BP 09/07/21 05:52 36.6 C 75 22 139/74 09/07/21 05:38 82 09/07/21 04:10 100 H 16 172/76 H 09/07/21 03:48 93 H 16 09/07/21 03:42 94 H 16 09/07/21 03:28 36.6 C 105 H 18 208/104 H BP Pulse Ox 09/07/21 05:52 95 09/07/21 05:38 09/07/21 04:10 96 09/07/21 03:48 175/89 H 97 09/07/21 03:42 152/91 H 97 09/07/21 03:28 100 09/07/21 03:34 09/07/21 03:34 [place] [address] Inpt Consult Level [address] Patient Type New Diagnoses ST elevation myocardial infarction (STEMI) of inferior wall I21.19 Hypertension I10 Hypertension type: primary hypertension Obesity (BMI 30.0-34.9) E66.9 (1) Hypertension Hypertension type: primary hypertension Qualified Code(s): I10 - Essential (primary) hypertension
[2021-09-07] MEDS: METOPROLOL TARTRATE 25 MG TAB PO SCH ×2 (08:19→20:54)
[2021-09-07] MEDS: ATORVASTATIN 40 MG TAB PO SCH (08:19)
[2021-09-07] MEDS: lisinopril 5 MG TAB PO SCH (08:19)
[2021-09-07] MEDS: ASPIRIN 81 MG ECTAB PO SCH (08:20)
[2021-09-07] MEDS: INSULIN ASPART PER UNIT SC SCH ×4 (08:52→20:40)
[2021-09-07 09:12] LABS: Hematocrit (blood only) 38.1 % (37-47); Hemoglobin 12.5 g/dL (12.0-16.0); Mean Corpuscular Hemoglobin 31.9 pg (25-34); Mean Corpuscular Hgb Conc 32.8 g/dL (32-36); Mean Corpuscular Volume 97.2 fL (80-100); Mean Platelet Volume 10.3 fL (7.4-10.4); Platelet Count 220 K/uL (130-400); RDW Coefficient of Variation 13.3 % (11.5-14.5); RDW Standard Deviation 47.3 fL (36.4-46.3); Red Blood Count 3.92 M/uL (4.2-5.4)
[2021-09-07 09:31] LABS: BUN Creatinine Ratio 17.4 (10-20); Creatinine Clr Calc Pharmacy 41.6 ml/min; Est GFR (African American) 52.6 ml/min; Est GFR (Non-African American) 45.4 ml/min; Potassium 3.8 mmol/L (3.5-5.1)
[2021-09-07 10:19] LABS: Troponin I 69.9 ng/ml (0-0.045)
--- NOTE | 2021-09-07 14:15 | Hospitalist Progress Note ---
Date of Service September 07, 2021 Assessment & Plan (1) ST elevation myocardial infarction (STEMI) of inferior wall: Plan: Inferior wall STEMI. Troponin up to 70 on 09/07. - Heart alert protocol - Cardiac catheterization showed distal RCA occlusion with upstream disease, treated with 3 stents. - Additional LAD disease to be intervened with in 1 to 2 days. -> Continue ASA, Plavix, statin, beta-sharon, ACEi (2) Hypertension: Plan: BP today is 140/70. - Continue above meds (3) Acute hyperglycemia: Plan: Glucose 181 upon admission. - Sliding scale insulin - Check a hemoglobin A1c (4) CKD (chronic kidney disease) stage 3, GFR 30-59 ml/min: Plan: Baseline Cr ~1.1 - 1.3. - Presently at baseline. - Spare kidneys as able given need for repeat Cr (5) DVT prophylaxis: Plan: SCDs - Low DVT risk per admission calculator Admission and Anticipated Discharge Date Admission Date: September 07, 2021 Subjective Doing well today. Transient chest pain, but passed before EKG could even get done. Reports no fevers/chills, shortness of breath, abdominal pain, nausea, or vomiting. Physical Exam Constitutional: WD/WN, vitals as above Eyes: EOM intact bilaterally; no conjunctival abnormality ENMT: external ear and nose normal, oropharynx normal Neck: trachea midline, no thyromegaly normal visual inspection Respiratory: normal respiratory effort, lungs clear to auscultation no respiratory distress Cardiovascular: RRR, no murmur, no edema Gastrointestinal (Abdomen): Inspection/Auscultation: abdomen normal to inspection; abdomen not distended Musculoskeletal: no cyanosis or clubbing, extremities motor strength 5/5 Skin: no rashes, warm and dry Neurologic: moves all extremities and awake Psychiatric: Orientation: alert, oriented to person and cooperative Results & Data Results & Data ([facility]) Vital Signs (Past 12 Hours) Vital Signs Temp Pulse Pulse Pulse Resp BP BP 09/07/21 11:45 70 15 09/07/21 11:30 84 27 H 137/68 09/07/21 11:15 59 L 21 09/07/21 11:00 70 21 09/07/21 10:45 61 20 09/07/21 10:30 61 25 H 147/71 H 09/07/21 10:00 64 25 H 128/64 09/07/21 09:30 73 18 09/07/21 09:00 87 25 H 09/07/21 08:30 77 19 128/85 09/07/21 08:00 84 28 H 164/66 H 09/07/21 07:30 86 20 09/07/21 07:00 70 23 138/66 09/07/21 06:45 69 15 145/66 H 09/07/21 05:52 36.6 C 75 22 139/74 09/07/21 05:38 82 09/07/21 04:10 100 H 16 172/76 H 09/07/21 04:00 94 H 36 H 09/07/21 03:48 93 H 16 09/07/21 03:42 94 H 16 09/07/21 03:30 105 H 23 09/07/21 03:29 106 H 28 H 09/07/21 03:28 36.6 C 105 H 18 208/104 H BP Pulse Ox 09/07/21 11:45 98 09/07/21 11:30 85 L 09/07/21 11:15 95 09/07/21 11:00 96 09/07/21 10:45 96 09/07/21 10:30 95 09/07/21 10:00 97 09/07/21 09:30 97 09/07/21 09:00 95 09/07/21 08:30 96 09/07/21 08:00 95 09/07/21 07:30 93 09/07/21 07:00 96 09/07/21 06:45 96 09/07/21 05:52 95 09/07/21 05:38 09/07/21 04:10 96 09/07/21 04:00 96 09/07/21 03:48 175/89 H 97 09/07/21 03:42 152/91 H 97 09/07/21 03:30 99 09/07/21 03:29 99 09/07/21 03:28 100 PG Care Time/CCT Total # of Minutes Spent Total Time Spent with Patient: Total time spent is greater than 50% in coordination of care (as documented) at patient's floor/unit and/or counseling patient: Coding Level of Care Code 97360 Subseq Hosp Care Lvl [address] elevation myocardial infarction (STEMI) of inferior wall I21.19 Hypertension I10 Hypertension type: primary hypertension Acute hyperglycemia R73.9 CKD (chronic kidney disease) stage 3, GFR 30-59 ml/min N18.30 DVT prophylaxis Z29.9 (1) Hypertension Hypertension type: primary hypertension Qualified Code(s): I10 - Essential (primary) hypertension
--- NOTE | 2021-09-07 18:58 | XCELERA ---
[id number]
[2021-09-08 05:51] LABS: Basophils # (auto) 0.03 K/uL (0-0.2); Basophils % (auto) 0.3 %; Eosinophils # (auto) 0.15 K/uL (0-0.5); Eosinophils % (auto) 1.5 %; Hematocrit (blood only) 35.5 % (37-47); Hemoglobin 11.4 g/dL (12.0-16.0); Immature Granulocytes # (auto) 0.01 K/uL (0.00-0.02); Immature Granulocytes % (auto) 0.1 %; Lymphocytes % (auto) 27.4 %; Mean Corpuscular Hemoglobin 31.3 pg (25-34); Mean Corpuscular Hgb Conc 32.1 g/dL (32-36); Mean Corpuscular Volume 97.5 fL (80-100); Mean Platelet Volume 10.4 fL (7.4-10.4); Monocytes # (auto) 0.81 K/uL (0.11-0.59); Monocytes % (auto) 8.2 %; Neutrophils # (auto) 6.17 K/uL (1.4-6.5); Neutrophils % (auto) 62.5 %; Platelet Count 216 K/uL (130-400); RDW Coefficient of Variation 13.3 % (11.5-14.5); RDW Standard Deviation 47.6 fL (36.4-46.3); Red Blood Count 3.64 M/uL (4.2-5.4); White Blood Count 9.87 K/uL (4.8-10.8)
[2021-09-08 06:24] LABS: BUN Creatinine Ratio 21.5 (10-20); Blood Urea Nitrogen 29 mg/dl (7-18); Calcium 8.8 mg/dl (8.5-10.1); Carbon Dioxide 24 mmol/L (21-32); Chloride 108 mmol/L (98-107); Creatinine Clr Calc Pharmacy 34.5 ml/min; Est GFR (Non-African American) 36.2 ml/min; Glucose 129 mg/dl (70-99); Potassium 4.2 mmol/L (3.5-5.1); Sodium 137 mmol/L (136-145)
[2021-09-08 06:27] LABS: Chol HDL Ratio 3; Cholesterol 126 mg/dl (0-200); HDL Cholesterol 41 mg/dl; LDL Cholesterol Direct 74 mg/dl; Triglycerides 112 mg/dl (0-150); VLDL Cholesterol 22 mg/dl
[2021-09-08 07:57] LABS: Estimated Average Glucose 157 mg/dl; Hemoglobin A1C 7.1 % (4.5-5.6)
[2021-09-08] MEDS: INSULIN ASPART PER UNIT SC SCH (08:30)
[2021-09-08] MEDS: CLOPIDOGREL BISULFATE 75 MG TAB PO SCH (09:00)
[2021-09-08] MEDS: ASPIRIN 81 MG ECTAB PO SCH (09:01)
[2021-09-08] MEDS: ATORVASTATIN 40 MG TAB PO SCH (09:01)
[2021-09-08] MEDS: lisinopril 5 MG TAB PO SCH (09:02)
[2021-09-08] MEDS: METOPROLOL TARTRATE 25 MG TAB PO SCH ×2 (09:02→21:32)
[2021-09-08] MEDS ORDERED: HEPARIN (PORCINE) 1000 UNIT/ML 10 ML (CATH LAB USE ONLY) ONE (09:04)
[2021-09-08] MEDS ORDERED: MIDAZOLAM HCL 1 MG/ML 2ML VIAL ONE ×2 (09:05→13:29)
[2021-09-08] MEDS ORDERED: fentaNYL citrate 100 MCG/2 ML VIAL ONE ×2 (09:05→13:29)
--- NOTE | 2021-09-08 10:51 | Electrocardiogram Report ---
Test Reason : Blood Pressure : / mmHG Vent. Rate : 100 BPM Atrial Rate : 100 BPM P-R Int : 208 ms QRS Dur : 088 ms QT Int : 342 ms P-R-T Axes : 066 015 078 degrees QTc Int : 441 ms Sinus rhythm with 1st degree A-V block Left ventricular hypertrophy with repolarization abnormality Inferior infarct (cited on or before 29-AUG-2021) ACUTE AL / STEMI Consider right ventricular involvement in acute inferior infarct Abnormal ECG When compared with ECG of 29-AUG-2021 14:53, Premature ventricular complexes are no longer Present ST elevation now present in Inferior leads ST now depressed in Lateral leads Confirmed by Royal Arredondo ([id number]) on 09/08/2021 10:50:44 AM Referred By: Jos Chandra Confirmed By:Royal Arredondo
--- NOTE | 2021-09-08 10:51 | Electrocardiogram Report ---
Test Reason : Blood Pressure : / mmHG Vent. Rate : 071 BPM Atrial Rate : 071 BPM P-R Int : 210 ms QRS Dur : 084 ms QT Int : 402 ms P-R-T Axes : 063 -04 016 degrees QTc Int : 436 ms Sinus rhythm with sinus arrhythmia with 1st degree A-V block Moderate voltage criteria for LVH, may be normal variant Inferior infarct (cited on or before 29-AUG-2021) Abnormal ECG When compared with ECG of 07-SEP-2021 03:32, Serial changes of evolving Inferior infarct Present Confirmed by Royal Arredondo ([id number]) on 09/08/2021 10:51:31 AM Referred By: Jos Chandra Confirmed By:Royal Arredondo
--- NOTE | 2021-09-08 11:01 | Electrocardiogram Report ---
Test Reason : Blood Pressure : / mmHG Vent. Rate : 060 BPM Atrial Rate : 060 BPM P-R Int : 192 ms QRS Dur : 076 ms QT Int : 406 ms P-R-T Axes : 050 -09 067 degrees QTc Int : 406 ms Normal sinus rhythm Left ventricular hypertrophy with repolarization abnormality Inferior infarct (cited on or before 29-AUG-2021) Anterior infarct , age undetermined Abnormal ECG When compared with ECG of 07-SEP-2021 05:31, Anterior infarct is now Present Confirmed by Royal Arredondo ([id number]) on 09/08/2021 11:00:38 AM Referred By: Jos Chandra Confirmed By:Royal Arredondo
--- NOTE | 2021-09-08 12:54 | Pre Anesthesia Assessment ---
Date of Service September 08, 2021 Pre Sedation Assessment Vital Signs Temp Pulse Pulse Resp BP BP Pulse Ox 09/08/21 11:19 56 L 20 143/67 H 96 09/08/21 08:00 98.2 F 62 18 131/74 94 09/08/21 05:00 61 15 118/54 L 94 09/08/21 04:50 61 11 L 95 09/08/21 04:40 54 L 20 93 09/08/21 04:30 55 L 19 93 09/08/21 04:20 60 17 95 09/08/21 04:10 60 19 95 09/08/21 04:00 58 L 17 122/45 L 96 09/08/21 03:50 57 L 24 93 09/08/21 03:40 66 20 92 09/08/21 03:30 56 L 18 93 09/08/21 03:20 60 16 95 09/08/21 03:10 58 L 20 95 09/08/21 03:00 72 21 125/62 94 09/08/21 02:00 58 L 21 119/55 L 94 09/08/21 01:00 54 L 15 105/48 L 93 09/08/21 00:00 64 25 H 125/59 L 95 09/07/21 23:30 64 14 95 09/07/21 23:17 98.6 F 09/07/21 23:00 64 21 127/57 L 93 09/07/21 22:30 88 18 95 09/07/21 22:00 70 25 H 120/51 L 94 09/07/21 21:00 69 23 125/53 L 95 09/07/21 20:00 98.8 F 71 16 119/64 119/64 95 09/07/21 19:00 71 24 109/55 L 93 09/07/21 18:38 68 27 H 93 09/07/21 17:30 67 16 95 09/07/21 17:15 61 18 93 09/07/21 17:00 63 18 117/55 L 94 09/07/21 16:45 71 12 95 09/07/21 16:30 77 13 94 09/07/21 16:15 72 10 L 96 09/07/21 16:00 71 21 09/07/21 15:45 71 18 09/07/21 15:30 63 16 09/07/21 15:15 69 18 09/07/21 15:00 84 17 09/07/21 14:45 66 26 H 96 09/07/21 14:30 64 25 H 97 09/07/21 14:15 63 19 93 09/07/21 14:00 70 19 88 L 09/07/21 13:45 62 19 99 09/07/21 13:30 62 18 95 09/07/21 13:15 66 29 H 97 09/07/21 13:00 62 25 H 113/58 L 95 Cardiovascular RRR, no murmur, no edema + S1 normal Respiratory normal respiratory effort, lungs clear to auscultation Pre-Sedation Airway Assessment Smoking Status: Never smoker Hx Sleep Apnea: No Hx Difficult Intubation: No Short, Thick Neck: No Thyromental Distance: > or= 3.5 Finger Breadths Oral Cavity: + WNL Mallampati Class: III ASA: ASA2 NPO Status Date of Last Intake of Fluids: 09/08/21 Time of Last Intake of Fluids: 08:00 Date of Last Intake of Solid Food: 09/07/21 Time of Last Intake of Solid Foods: 21:00 Procedure Planning Contraindications for Sedation: none Current Medications Reviewed: Yes Notes The planned sedation has been discussed with the patient. Informed Consent was obtained. I have identified the patient, determined the appropriateness of sedation and have assessed the patient immediately prior to the procedure. All medicine(s) and interventions are by my order.
[2021-09-08] MEDS ORDERED: CLOPIDOGREL BISULFATE 300 MG TAB ONE (13:26)
[2021-09-08] MEDS ORDERED: NITROGLYCERIN 2% OINTMENT 30GM TUBE ONE (13:44)
--- NOTE | 2021-09-08 13:45 | Post Anesthesia Assessment ---
Date of Service September 08, 2021 Post Sedation Assessment Vital Signs Temp Pulse Pulse Resp BP BP Pulse Ox 09/08/21 11:19 56 L 20 143/67 H 96 09/08/21 08:00 98.2 F 62 18 131/74 94 09/08/21 05:00 61 15 118/54 L 94 09/08/21 04:50 61 11 L 95 09/08/21 04:40 54 L 20 93 09/08/21 04:30 55 L 19 93 09/08/21 04:20 60 17 95 09/08/21 04:10 60 19 95 09/08/21 04:00 58 L 17 122/45 L 96 09/08/21 03:50 57 L 24 93 09/08/21 03:40 66 20 92 09/08/21 03:30 56 L 18 93 09/08/21 03:20 60 16 95 09/08/21 03:10 58 L 20 95 09/08/21 03:00 72 21 125/62 94 09/08/21 02:00 58 L 21 119/55 L 94 09/08/21 01:00 54 L 15 105/48 L 93 09/08/21 00:00 64 25 H 125/59 L 95 09/07/21 23:30 64 14 95 09/07/21 23:17 98.6 F 09/07/21 23:00 64 21 127/57 L 93 09/07/21 22:30 88 18 95 09/07/21 22:00 70 25 H 120/51 L 94 09/07/21 21:00 69 23 125/53 L 95 09/07/21 20:00 98.8 F 71 16 119/64 119/64 95 09/07/21 19:00 71 24 109/55 L 93 09/07/21 18:38 68 27 H 93 09/07/21 17:30 67 16 95 09/07/21 17:15 61 18 93 09/07/21 17:00 63 18 117/55 L 94 09/07/21 16:45 71 12 95 09/07/21 16:30 77 13 94 09/07/21 16:15 72 10 L 96 09/07/21 16:00 71 21 09/07/21 15:45 71 18 09/07/21 15:30 63 16 09/07/21 15:15 69 18 09/07/21 15:00 84 17 09/07/21 14:45 66 26 H 96 09/07/21 14:30 64 25 H 97 09/07/21 14:15 63 19 93 09/07/21 14:00 70 19 88 L Recovery Score Activity: Moves 4 extremities Respiration: Deep Breath/Cough Circulation: +/-20% PreAnes Value Consciousness: Fully Awake Oxygen Saturation: O2 needed for >90% Discharge Sedation Level of Care: Fast Track Phase II Post Sedation Plan On clinical assessment, the patient appears to have tolerated the sedation witho ut complications. Patient is recovering as anticipated. Patient will continue to be monitored by nursing and may be discharged when sedation discharge criteria are met per below protocol. Upon Completions of procedure up to 15 minutes continue every 5 minute vital signs and the P.A.R. score; then discharge to a Phase I or Fast Track to Phase II per the following guidelines: * Discharge Patient to appropriate Phase II area if PAR is 8 or greater or return to pre- procedure baseline. The post - procedure orders will be as directed. * If PAR score is less than 8 or not return to pre-procedure baseline then patient will follow Phase I monitoring till PAR is reached for Phase II. The Phase I may be done in procedure room or may call to secure a Phase I area. * If naloxone or flumazenil are used for reversal, hold in Phase I for continued monitoring from when last reversal dose was given for a minimum of 60 minutes or longer pending the nurse and/or physician discretion of patient condition before discharge to Phase II. Please call the Sedation Physician to re-evaluate and complete post-note for discharge to Phase II area. Do NOT discharge from procedure sedation or Phase 1 until post- sedation evaluation note is complete by procedure /sedation MD Sedation Discharge Instructions to be given to the patient at discharge to home.
--- NOTE | 2021-09-08 13:51 | Post Operative Brief Note ---
Cardiology Brief Post Op Date of Surgery September 08, 2021 Pre & Post Diagnosis CAD Procedure PCI to LAD Rn Oncology Lenin Chandra MD [employer] Dual Rate Supervisor [place] Estimated Blood Loss 10 Findings See Below Diffuse proximal LAD disease up to 90+% Successful PCI of proximal to mid LAD with single TULIO (2.75 x 28 mm Xience; post-dilated with 3.25 NC). Compromised flow is small high diagonals causing moderate post procedure chest pain. Vessels too small for intervention. Continue nitrates, fentanyl as needed for pain. Anesthesia Type RN Sedation Complications none Disposition Accompanied Patient To Recovery: No Disposition: Surgical ICU Overlapping Procedure I was present for: the critical portions of procedure. I was immediately available: during the entire case. Back up surgeon: was not required during procedure.
[2021-09-08] MEDS ORDERED: fentaNYL citrate 100 MCG/2 ML VIAL IV PRN (13:55)
[2021-09-08] MEDS ORDERED: NITROGLYCERIN 2% OINTMENT 30GM TUBE EXT SCH (14:00)
[2021-09-08] MEDS ORDERED: SODIUM CHLORIDE 0.9% 1000ML 1,000 ML IV SCH (14:00)
--- NOTE | 2021-09-08 15:05 | Hospitalist Progress Note ---
Date of Service September 08, 2021 Assessment & Plan (1) ST elevation myocardial infarction (STEMI) of inferior wall: Plan: Inferior wall STEMI. Troponin up to 70 on 09/07. - Heart alert protocol on admission. - Cardiac catheterization showed distal RCA occlusion with upstream disease, treated with 3 stents. - Additional LAD disease intervened on with second PCI on 09/08 with single TULIO to LAD. Small diagonals seem to have been cut off during procedure with some re sulting post-cath chest pain. -> Continue ASA, Plavix, statin, beta-sharon, ACEi - Nitro paste and fentynl PRN; could consider nitro gtt if constinues to have pain. (2) Hypertension: Plan: BP today is 150/70. - Continue above meds (3) Acute hyperglycemia: Plan: Glucose 181 upon admission. A1c was 7.1%. - Sliding scale insulin (4) CKD (chronic kidney disease) stage 3, GFR 30-59 ml/min: Plan: Baseline Cr ~1.1 - 1.3. - Presently near baseline at 1.35. (5) DVT prophylaxis: Plan: SCDs - Low DVT risk per admission calculator Admission and Anticipated Discharge Date Admission Date: September 07, 2021 Subjective Seen twice today. In AM, doing well. In PM after second cath, she is having some chest pain. Reports no fevers/chills, shortness of breath, abdominal pain, nausea, or vomiting. Physical Exam Constitutional: WD/WN, vitals as above Eyes: EOM intact bilaterally; no conjunctival abnormality ENMT: external ear and nose normal, oropharynx normal Neck: trachea midline, no thyromegaly normal visual inspection Respiratory: normal respiratory effort, lungs clear to auscultation no respiratory distress Cardiovascular: RRR, no murmur, no edema Gastrointestinal (Abdomen): Inspection/Auscultation: abdomen normal to inspection; abdomen not distended Musculoskeletal: no cyanosis or clubbing, extremities motor strength 5/5 Skin: no rashes, warm and dry Neurologic: moves all extremities and awake Psychiatric: Orientation: alert, oriented to person and cooperative Results & Data Results & Data ([facility]) Vital Signs (Past 12 Hours) Vital Signs Temp Pulse Pulse Pulse Resp BP BP 09/08/21 14:40 16 137/79 09/08/21 14:10 54 L 54 L 16 12/23/21 14:00 56 L 20 126/70 09/08/21 13:55 55 L 55 L 16 09/08/21 13:45 63 20 139/73 09/08/21 11:19 56 L 20 143/67 H 09/08/21 11:00 58 L 22 09/08/21 10:50 60 17 09/08/21 10:40 60 14 09/08/21 10:30 57 L 18 09/08/21 10:20 57 L 23 09/08/21 10:10 58 L 22 09/08/21 10:00 54 L 17 115/58 L 09/08/21 09:50 54 L 12 09/08/21 09:40 60 15 09/08/21 09:30 58 L 12 09/08/21 09:20 60 19 09/08/21 09:10 61 16 09/08/21 09:00 61 14 09/08/21 08:50 59 L 26 H 09/08/21 08:40 61 15 09/08/21 08:30 63 19 09/08/21 08:20 63 14 09/08/21 08:10 67 22 09/08/21 08:00 36.8 C 61 15 131/74 09/08/21 07:52 72 22 09/08/21 07:40 65 18 09/08/21 07:30 59 L 18 09/08/21 07:20 70 18 09/08/21 07:10 68 17 09/08/21 07:00 56 L 17 09/08/21 06:50 56 L 18 09/08/21 06:40 55 L 19 09/08/21 06:30 54 L 18 09/08/21 06:20 55 L 19 09/08/21 06:10 59 L 19 09/08/21 06:04 58 L 19 09/08/21 05:30 61 21 09/08/21 05:20 59 L 16 09/08/21 05:10 62 21 09/08/21 05:00 61 15 118/54 L 09/08/21 04:50 61 11 L 09/08/21 04:40 54 L 20 09/08/21 04:30 55 L 19 09/08/21 04:20 60 17 09/08/21 04:10 60 19 09/08/21 04:00 58 L 17 122/45 L 09/08/21 03:50 57 L 24 09/08/21 03:40 66 20 09/08/21 03:30 56 L 18 09/08/21 03:20 60 16 09/08/21 03:10 58 L 20 09/08/21 03:00 72 21 125/62 BP Pulse Ox 09/08/21 14:40 97 09/08/21 14:10 140/72 98 09/08/21 14:00 94 09/08/21 13:55 155/88 H 98 09/08/21 13:45 91 09/08/21 11:19 96 09/08/21 11:00 09/08/21 10:50 09/08/21 10:40 09/08/21 10:30 09/08/21 10:20 09/08/21 10:10 09/08/21 10:00 09/08/21 09:50 09/08/21 09:40 09/08/21 09:30 09/08/21 09:20 09/08/21 09:10 09/08/21 09:00 09/08/21 08:50 09/08/21 08:40 09/08/21 08:30 09/08/21 08:20 09/08/21 08:10 09/08/21 08:00 94 09/08/21 07:52 09/08/21 07:40 95 09/08/21 07:30 93 09/08/21 07:20 95 09/08/21 07:10 95 09/08/21 07:00 93 09/08/21 06:50 95 09/08/21 06:40 94 09/08/21 06:30 94 09/08/21 06:20 92 09/08/21 06:10 93 09/08/21 06:04 92 09/08/21 05:30 94 09/08/21 05:20 94 09/08/21 05:10 96 09/08/21 05:00 94 09/08/21 04:50 95 09/08/21 04:40 93 09/08/21 04:30 93 09/08/21 04:20 95 09/08/21 04:10 95 09/08/21 04:00 96 09/08/21 03:50 93 09/08/21 03:40 92 09/08/21 03:30 93 12/23/21 03:20 95 09/08/21 03:10 95 09/08/21 03:00 94 PG Care Time/CCT Total # of Minutes Spent Total Time Spent with Patient: Total time spent is greater than 50% in coordination of care (as documented) at patient's floor/unit and/or counseling patient: Coding Level of Care Code 57237 Subseq Hosp Care Lvl [address] elevation myocardial infarction (STEMI) of inferior wall I21.19 Hypertension I10 Hypertension type: primary hypertension Acute hyperglycemia R73.9 CKD (chronic kidney disease) stage 3, GFR 30-59 ml/min N18.30 DVT prophylaxis Z29.9 (1) Hypertension Hypertension type: primary hypertension Qualified Code(s): I10 - Essential (primary) hypertension
[2021-09-08] MEDS ORDERED: STAT IV Infusion **Titration per Protocol STA (15:18)
[2021-09-08] MEDS ORDERED: NITROGLYCERIN/D5W 100MCG/ML 250 ML IV SCH (15:30)
--- NOTE | 2021-09-08 18:43 | Critical Care Progress Note ---
Date of Service September 08, 2021 Assessment & Plan (1) ST elevation myocardial infarction (STEMI) of inferior wall: (2) Hypertension: (3) Obesity (BMI 30.0-34.9): Plan: Initial EKG in the ER showed ST elevation in 2 3 aVF EKG post cardiac cath showed resolving ST elevations. --STEMI S/p cardiac cath, 3 stents placed in the RCA Continue with dual antiplatelet therapy Continue with beta-sharon and ARIADNA inhibitor Continue with statin --Hypertension Continue with beta-sharon and lisinopril We will increase the dose if need be --Obesity Try to lose weight with diet and exercise Plan: Patient is for cardiac cath again today. Her troponins have been trending down Patient is hemodynamically stable to be downgraded to telemetry floor Case discussed with Dr. Lindsey Please note the above document was generated using voice recognition software. It may contain grammatical, syntax or spelling errors.Any formal questions or concerns about the content, text or information contained within the body of this dictation should be directly addressed to the provider for clarification. Admission and Anticipated Discharge Date Admission Date: September 07, 2021 Subjective Patient seen and family bedside. No acute distress, no adverse events overnight Patient denied any chest pain, no headache, no nausea, no vomiting She is n.p.o. for cardiac catheterization Denies any dizziness. Review of Systems Review of Systems: All systems reviewed & are unremarkable except as noted in Subjective Physical Exam Physical Exam: Constitutional: No acute distress HEENT: EOMI, PERRLA Respiratory system: Good air entry bilaterally, no wheeze, no rhonchi, mild crackles bilateral lower lobes CVS: S1-S2 positive, no murmurs or gallops Abdomen: Soft, nontender, nondistended, positive bowel sounds x4 Extremities: +2 pulses bilaterally radialis/ dorsalis pedis, no cyanosis, no edema Neuro: Awake alert oriented x3 Psych: Normal mood and affect G/U: No Damon Skin: no rashes, warm and dry Lymphatic: no cervical or axillary lymphadenopathy Results & Data Results & Data ([facility]) Vital Signs (Past 12 Hours) Vital Signs Temp Pulse Pulse Pulse Resp BP BP 09/08/21 17:00 78 19 150/70 H 09/08/21 16:45 66 28 H 138/65 09/08/21 16:30 68 27 H 131/70 09/08/21 16:15 64 26 H 137/68 09/08/21 16:00 54 L 19 139/73 09/08/21 15:45 56 L 21 140/74 09/08/21 15:30 60 21 139/80 09/08/21 15:15 57 L 20 139/72 09/08/21 15:00 53 L 24 153/70 H 09/08/21 14:45 53 L 19 137/79 09/08/21 14:40 16 137/79 09/08/21 14:30 37 C 62 23 130/72 09/08/21 14:10 54 L 54 L 16 09/08/21 14:00 56 L 20 126/70 09/08/21 13:55 55 L 55 L 16 09/08/21 13:45 63 20 139/73 09/08/21 11:19 56 L 20 143/67 H 09/08/21 11:00 58 L 22 09/08/21 10:50 60 17 09/08/21 10:40 60 14 09/08/21 10:30 57 L 18 09/08/21 10:20 57 L 23 09/08/21 10:10 58 L 22 09/08/21 10:00 54 L 17 115/58 L 09/08/21 09:50 54 L 12 09/08/21 09:40 60 15 09/08/21 09:30 58 L 12 09/08/21 09:20 60 19 09/08/21 09:10 61 16 09/08/21 09:00 61 14 09/08/21 08:50 59 L 26 H 09/08/21 08:40 61 15 09/08/21 08:30 63 19 09/08/21 08:20 63 14 09/08/21 08:10 67 22 09/08/21 08:00 36.8 C 61 15 131/74 09/08/21 07:52 72 22 09/08/21 07:40 65 18 09/08/21 07:30 59 L 18 09/08/21 07:20 70 18 09/08/21 07:10 68 17 09/08/21 07:00 56 L 17 09/08/21 06:50 56 L 18 BP Pulse Ox 09/08/21 17:00 94 09/08/21 16:45 97 09/08/21 16:30 98 12/23/21 16:15 98 09/08/21 16:00 99 09/08/21 15:45 100 09/08/21 15:30 100 09/08/21 15:15 98 09/08/21 15:00 100 09/08/21 14:45 99 09/08/21 14:40 97 09/08/21 14:30 100 09/08/21 14:10 140/72 98 09/08/21 14:00 94 09/08/21 13:55 155/88 H 98 09/08/21 13:45 91 09/08/21 11:19 96 09/08/21 11:00 09/08/21 10:50 09/08/21 10:40 09/08/21 10:30 09/08/21 10:20 09/08/21 10:10 09/08/21 10:00 09/08/21 09:50 09/08/21 09:40 09/08/21 09:30 09/08/21 09:20 09/08/21 09:10 09/08/21 09:00 09/08/21 08:50 09/08/21 08:40 09/08/21 08:30 09/08/21 08:20 09/08/21 08:10 09/08/21 08:00 94 09/08/21 07:52 09/08/21 07:40 95 09/08/21 07:30 93 09/08/21 07:20 95 09/08/21 07:10 95 09/08/21 07:00 93 09/08/21 06:50 95 Laboratory Results 09/08/21 05:07 09/08/21 05:07 Coding Level of Care Code 62927 Subseq Hosp Care Lvl [address] elevation myocardial infarction (STEMI) of inferior wall I21.19 Hypertension I10 Hypertension type: primary hypertension Obesity (BMI 30.0-34.9) E66.9 (1) Hypertension Hypertension type: primary hypertension Qualified Code(s): I10 - Essential (primary) hypertension
--- NOTE | 2021-09-08 22:53 | Cardiac Catheterization ---
[facility] Data: Manager Of Training Cardiac Status Clinical evaluation leading to the procedure CAD Presenation: STEMI Anginal Classification: CCS IV Heart Failure: No Cardiogenic Shock within 24 Hours: No Cardiac Arrest within 24 Hours: No Imaging Studies Past 6 Months: Yes Stress Studies Past 6 Months: No Diagnostic Physicians Name: Lenin Chandra MD Status: Elective Closure Device Percutaneous Entry Location: Radial Closure Device: Radial Band Recommendations: PCI without planned CABG PCI Indication: Staged PCI Lesion Segment Name: Proximal LAD Culprit Artery: No Stenosis Prior to Rx (%): 90 Chronic Total Occlusion: No IVUS: No FFR: No Pre-Procedure YOSELYN Flow: 3 Previously Treated Lesion: No Lesion Complexity: Non-High/Non-C Lesion Length (mm): 28 Thrombus Present: No Bifurcation Lesion: No Guidewire Across Lesion: Stenosis Post-Procedure (%): 0 Post-Procedure YOSELYN Flow: 3 Devices(s) Deployed: Yes Yes Intraprocedure Events Significant Disection: No Perforation: No Cardiac Cath Procedure Full Procedure Date September 08, 2021 Pre-Procedure Diagnosis Pre-Procedure Diagnosis: CAD AUC Score AUC Score: 7 Post-Procedure Diagnosis Post-Procedure Diagnosis: Severe CAD and Successful PCI Procedure(s) Performed Procedure(s) Performed: Coronary Angiography and Drug Eluting Stent [employer] Trader Lenin Chandra MD Public Health Technologist(s) Jatin Estimated Blood Loss Estimated Blood Loss: 15 Medication(s) Medication(s): Clopidogrel, Fentanyl, Heparin, Lidocaine 1%, Nicardipine, Nitroglycerin and Versed Summary of Findings Indication: Staged PCI of proximal LAD. Post primary PCI to RCA in the setting of inferior STEMI. Access: 6 Fr right radial artery Catheters: EBU 3.5 guide Findings: LAD -medium caliber, calcified, diffuse proximal to mid disease up to 90%, latemid vessel after 2nd diagonal diffuse moderate disease up to 60%, distal vessel without significant disease extending to apex. Small D2 without disease. -- PCI -- Antithrombotic therapy: Heparin, clopidogrel Procedure: Left main cannulated with EBU 3.5 guide BMW wire passed across lesion into distal vessel Proximal to mid LAD lesion predilated with 2.5 compliant balloon Dilated lesion stented with 2.75 x 28 mm Xience drug-eluting stent Stent post-dilated with 3.25 noncompliant balloon IC vasodilators administered for spasm Post NC balloon patient endorsed increased chest pain and noted to have no-flow in small bifurcating D1. Post procedure YOSELYN 3 flow in LAD with minimal residual stenosis. Arterial Closure: TR band Summary: 1. Successful PCI of proximal to mid LAD with single drug-eluting stent (2.75 x 28 mm Xience; postdilated with 3.25 NC). No flow in very small jailed D1 post procedure Recommendations: To ICU for continued monitoring Reloaded with clopidogrel 300 mg in Manager Of Training Additional nitrates, opiods for pain for jailed diagonal. Hemodynamics Rest Ao:: 104/43/69 Final Ao: 123/56/85 LV: -- Recommendations Recommendations: PCI without planned CABG Specimens Specimens: None Radiation Exposure (mGy) 1835 Contrast (mls) 100 Visipaque Fluids (cc crystalloids) Fluids (cc crystalloids): 100 Drains Drains: None Anesthesia Moderate [id number] Procedural Complication(s) None Disposition ICU I attest to the content of the Intraoperative Record and any orders documented therein. Any exceptions are noted below. [facility] Card Cath Procedure Codes Moderate Sedation Procedure 1: Sedation/Anesthesia: 18703 Mod Sedation by the same physician;Init15 Min Child Age 5 & Up Procedure 2: Sedation/Anesthesia: 65832 Mod Sedation by the same physician; Ea Additio nal15 Minutes Stenting Procedure 1: Cardiovascular Stent Procedures: 44047 Perc transcatheter placement of intracoronary stent(s), with ang PG Care Time/CCT Total # of Minutes Spent Total Time Spent with Patient: Total time spent is greater than 50% in coordination of care (as documented) at patient's floor/unit and/or counseling patient:
--- NOTE | 2021-09-08 23:06 | Cardiology Progress Note ---
Date of Service September 08, 2021 Assessment & Plan (1) ST elevation myocardial infarction (STEMI) of inferior wall: Plan: Post PCI to RCA with 3 nonoverlapping drug-eluting stents 2. 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 Mild LV dysfunction, EF 45% with inferior/inferolateral hypokinesis 4. Mild mitral regurgitation 5. Stage III CKD 6. Borderline diabetes Patient with improving chest pain post PCI earlier today. Pain thought secondary to compromised flow in small jailed D1. Suspect pain will continue to resolve this evening and can wean off nitrates. Continue DAPT with aspirin, clopidogrel Continue current metoprolol, lisinopril. Discontinue prior amlodipine. Continue statin If patient feeling well, chest pain-free planning for potential discharge tomorrow morning. Follow-up with me in 1 to 2 weeks. Admission and Anticipated Discharge Date Admission Date: September 07, 2021 Subjective Patient post PCI to LAD earlier today. Post procedure had significant pain attributed to no flow and small jailed diagonal. Started on topical nitrates with fentanyl. Later switched to nitro drip. Currently feeling better after dinner. Had some mild belching which resolved. Chest pain down to 1 out of 10. Review of Systems Review of Systems: All systems reviewed & are unremarkable except as noted in HPI & below Physical Exam Physical Exam: General: Comfortable HEENT: Sclerae anicteric Lungs: Clear to auscultation bilaterally Cardiac: Regular rate and rhythm Vascular: Right radial artery access site with no ecchymosis, hematoma, TR band in place Abdomen: Soft, nontender Extremities: Well perfused, no peripheral edema Neuro: Nonfocal Psych: Alert orient x3, normal affect and mood Results & Data ([facility]) Vital Signs (Past 12 Hours) Vital Signs Temp Pulse Pulse Pulse Resp BP BP 09/08/21 22:00 64 28 H 119/64 09/08/21 21:00 66 26 H 125/60 09/08/21 20:30 77 20 132/66 09/08/21 20:15 73 22 128/65 09/08/21 20:00 97.9 F 69 26 H 132/66 09/08/21 19:47 68 24 09/08/21 19:30 60 20 129/63 09/08/21 19:15 68 26 H 133/67 09/08/21 19:00 65 23 09/08/21 18:45 70 16 09/08/21 18:38 68 15 09/08/21 17:00 78 19 150/70 H 09/08/21 16:45 66 28 H 138/65 09/08/21 16:30 68 27 H 131/70 09/08/21 16:15 64 26 H 137/68 09/08/21 16:00 54 L 19 139/73 09/08/21 15:45 56 L 21 140/74 09/08/21 15:30 60 21 139/80 09/08/21 15:15 57 L 20 139/72 09/08/21 15:00 53 L 24 153/70 H 09/08/21 14:45 53 L 19 137/79 09/08/21 14:40 16 137/79 09/08/21 14:30 98.6 F 62 23 130/72 09/08/21 14:10 54 L 54 L 16 09/08/21 14:00 56 L 20 126/70 09/08/21 13:55 55 L 55 L 16 09/08/21 13:45 63 20 139/73 09/08/21 11:19 56 L 20 143/67 H 09/08/21 11:00 58 L 22 BP Pulse Ox 09/08/21 22:00 96 09/08/21 21:00 96 09/08/21 20:30 96 09/08/21 20:15 96 09/08/21 20:00 95 09/08/21 19:47 96 09/08/21 19:30 09/08/21 19:15 09/08/21 19:00 09/08/21 18:45 09/08/21 18:38 09/08/21 17:00 94 09/08/21 16:45 97 09/08/21 16:30 98 09/08/21 16:15 98 09/08/21 16:00 99 09/08/21 15:45 100 09/08/21 15:30 100 09/08/21 15:15 98 09/08/21 15:00 100 09/08/21 14:45 99 09/08/21 14:40 97 09/08/21 14:30 100 09/08/21 14:10 140/72 98 09/08/21 14:00 94 09/08/21 13:55 155/88 H 98 09/08/21 13:45 91 09/08/21 11:19 96 09/08/21 11:00 PG Care Time/CCT Total # of Minutes Spent Total Time Spent with Patient: Total time spent is greater than 50% in coordination of care (as documented) at patient's floor/unit and/or counseling patient: Coding Level of Care Code 90574 Subseq Hosp Care Lvl [address] elevation myocardial infarction (STEMI) of inferior wall I21.19
[2021-09-09 04:50] LABS: Hematocrit (blood only) 34.8 % (37-47); Hemoglobin 11.2 g/dL (12.0-16.0); Mean Corpuscular Hemoglobin 31.4 pg (25-34); Mean Corpuscular Hgb Conc 32.2 g/dL (32-36); Mean Corpuscular Volume 97.5 fL (80-100); Mean Platelet Volume 10.1 fL (7.4-10.4); Platelet Count 236 K/uL (130-400); RDW Coefficient of Variation 13.3 % (11.5-14.5); RDW Standard Deviation 47.7 fL (36.4-46.3); Red Blood Count 3.57 M/uL (4.2-5.4); White Blood Count 9.11 K/uL (4.8-10.8)
[2021-09-09 05:16] LABS: BUN Creatinine Ratio 23.5 (10-20); Calcium 8.9 mg/dl (8.5-10.1); Creatinine Clr Calc Pharmacy 38.8 ml/min; Est GFR (African American) 48.4 ml/min; Est GFR (Non-African American) 41.8 ml/min; Potassium 4.1 mmol/L (3.5-5.1)
[2021-09-09 05:22] LABS: Troponin I 18.2 ng/ml (0-0.045)
[2021-09-09] MEDS: METOPROLOL TARTRATE 25 MG TAB PO SCH (08:04)
[2021-09-09] MEDS: ATORVASTATIN 40 MG TAB PO SCH (08:05)
[2021-09-09] MEDS: CLOPIDOGREL BISULFATE 75 MG TAB PO SCH (08:05)
[2021-09-09] MEDS: ASPIRIN 81 MG ECTAB PO SCH (08:05)
[2021-09-09] MEDS: lisinopril 5 MG TAB PO SCH (08:06)
--- NOTE | 2021-09-09 08:22 | Discharge Summary ---
Date of Service September 09, 2021 Admission HPI Per Admitting Provider The patient is an 85-year-old female with a past medical history including hypertension, recently started on amlodipine 5 mg daily in the outpatient setting, who was in her usual state of health until this evening where she developed acute onset of left-sided chest discomfort. Since the discomfort persisted 6 to 7 hours, she decided come to ED for assessment. In the emergency department, patient had an emergent EKG which showed ST elevation [place] inferiorly, and heart alert was called. Patient did receive Lopressor 5 mg IV while in the ED, and aspirin 324 mg. She was taken emergently to cardiac catheter lab by Dr. Lenin Chandra, and will be admitted to the hospital post procedure for continued management Discharge Data Consultations 09/07/21 03:37 ED Decision to Admit Stat 09/07/21 05:19 Consult Cardiac Rehabilitation Routine 09/07/21 05:20 Consult Property Analyst Routine Procedures Performed Operation Date: 09/07/21 04:00 Actual Procedures p Aspiration/PCI w/TULIO for Stemi - Jos Chandra MD s Cath, Left with Cors and Vent - Jos Chandra MD Operation Date: 09/08/21 11:30 Actual Procedures p Cineradiography w/Routine Exam - Jos Chandra MD s Drug Eluting Stent SGl Vessel - Jos Chandra MD Diabetes Follow Up Diabetes Follow Up: Diabetes Follow-up Needed for Newly Diagnosed Diabetes Hospital Course (1) ST elevation myocardial infarction (STEMI) of inferior wall: Post PCI to RCA with 3 nonoverlapping drug-eluting stents 2. 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 Mild LV dysfunction, EF 45% with inferior/inferolateral hypokinesis 4. Mild mitral regurgitation 5. Stage III CKD 6. Borderline diabetes Patient presented with more than 6 hours of chest pain and initial ECG showing inferior ST elevations. Emergent cardiac cath revealed an occluded distal RCA with severe upstream disease. Treated with primary PCI with nonoverlapping drug-eluting stents to RCA. Procedure tolerated well. Also noted to have severe nonculprit proximal to mid LAD disease. Post procedure echocardiogram showed EF of 45% with inferior wall motion abnormality. Troponin peaked at 69. On hospital day 2 she underwent staged PCI of her LAD with placement of another drug-eluting stent. Post procedure she had residual chest pain secondary to pinched small diagonals. Pain resolved overnight with nitrates. On hospital day 3 patient was feeling well with no residual chest pain. No access site complications at her right radial artery. She was discharged to home on dual antiplatelet therapy with aspirin, clopidogrel. Also started on metoprolol, lisinopril and atorvastatin. She will follow up with cardiology in 1 to 2 weeks. Further follow-up with primary care scheduled. Further discussion regarding borderline diabetes management with hemoglobin A1c of 7.1 Discharge Instructions Home Medications aspirin 81 mg tablet,delayed release 81 mg PO QAM #30 tab 09/08/21 [Rx] atorvastatin 40 mg tablet 40 mg PO QAM #30 tab 09/08/21 [Rx] clopidogrel 75 mg tablet 75 mg PO QAM #30 tab 09/08/21 [Rx] lisinopril 5 mg tablet (Zestril) 5 mg PO QAM #30 tab 09/08/21 [Rx] metoprolol succinate 25 mg tablet,extended release 24 hr 25 mg PO DAILY #30 tab 09/08/21 [Rx] nitroglycerin 0.4 mg sublingual tablet 0.4 mg SUBLINGUAL Q5M PRN #30 tab 09/08/21 [Rx] Coding Level of Care Code D/C DAY MANAGEMENT <[address] elevation myocardial infarction (STEMI) of inferior wall I21.19
--- NOTE | 2021-09-09 08:35 | Electrocardiogram Report ---
Test Reason : Blood Pressure : / mmHG Vent. Rate : 063 BPM Atrial Rate : 063 BPM P-R Int : 194 ms QRS Dur : 076 ms QT Int : 426 ms P-R-T Axes : 072 -09 -25 degrees QTc Int : 435 ms Normal sinus rhythm Inferior infarct (cited on or before 29-AUG-2021) Abnormal ECG When compared with ECG of 07-SEP-2021 10:34, Criteria for Anterior infarct are no longer Present Serial changes of Inferior infarct Present Confirmed by Royal Arredondo ([id number]) on 09/09/2021 8:35:16 AM Referred By: Jos Chandra Confirmed By:Royal Arredondo
--- NOTE | 2021-09-09 08:42 | Electrocardiogram Report ---
Test Reason : Blood Pressure : / mmHG Vent. Rate : 056 BPM Atrial Rate : 056 BPM P-R Int : 194 ms QRS Dur : 082 ms QT Int : 444 ms P-R-T Axes : 060 -12 -37 degrees QTc Int : 428 ms Sinus bradycardia with Premature supraventricular complexes Minimal voltage criteria for LVH, may be normal variant Inferior infarct (cited on or before 29-AUG-2021) Anterior infarct , age undetermined Abnormal ECG When compared with ECG of 08-SEP-2021 13:40, Premature supraventricular complexes are now Present Anterior infarct is now Present T wave inversion now evident in Anterolateral leads Confirmed by Royal Arredondo ([id number]) on 09/09/2021 8:42:03 AM Referred By: Jos Chandra Confirmed By:Royal Arredondo
== END 2021-09-09 10:04 | disposition home or self-care (01) | DRG 246 ==
LOC: ED 03:19 → CC 04:10 → SUATTDRO 05:20 → 1E 05:20
PROC: CLB.CCO (2021-09-08 11:30)